=== PATIENT | female | born 2000 | race Caucasian/White ===

== ENCOUNTER 2022-07-08 08:00 | Outpatient (CLI) | payer OTHER ==
[2022-07-08 15:21] LABS: BILIRUBIN,URINE NEGATIVE (NEGATIVE); GLUCOSE, URINE (UA) NEGATIVE (NEGATIVE); KETONES,URINE (UA) NEGATIVE (NEGATIVE); LEUKOCYTE ESTERASE, URINE NEGATIVE (NEGATIVE); NITRITE,URINE NEGATIVE (NEGATIVE); OCCULT BLOOD,URINE NEGATIVE (NEGATIVE); PROTEIN,URINE NEGATIVE (NEGATIVE); UROBILINOGEN,URINE 0.2 (NORMAL) E.U./dL (NORMAL)
[2022-07-08 15:24] LABS: CLARITY,URINE CLEAR (CLEAR)
== END 2022-07-08 23:59 | disposition home or self-care (01) ==
LOC: LAB.WC 08:00
PROVIDERS: ATTEND Obstetrics & Gynecology
DX: Z32.01 Encounter for pregnancy test, result positive (principal)
CPT/HCPCS: 81001; 81003; 87086

== ENCOUNTER 2022-09-08 13:56 | Outpatient (CLI) | payer OTHER ==
[2022-09-10 13:09] LABS: AFP MOM 0.87 (.); AFP VALUE 35.3 ng/mL (.); DIA MOM 1.02 (.); DSR (BY AGE) 1 IN 1056 (.); DSR (SECOND TRIMESTER) 1 IN 1659 (.); GEST. AGE ON COLLECTION DATE 15.4 WEEKS (.); GESTAT. AGE METHOD EDD (.); HCG MOM 1.08 (.); HCG VALUE 72188 mIU/mL (.); INSULIN DEP DIABETES No (.); MATERNAL AGE AT EDD 24.4 yr (.); MULTIPLE GESTATION No (.); OPEN SPINA BIFIDA RISK 1 IN 10000 (.); RACE Caucasian (.); RESULTS Report (.); TEST RESULTS *Screen Negative* (.); TRISOMY 18 RISK Not increased (.); UE3 MOM 0.64 (.); UE3 VALUE 0.61 ng/mL (.); WEIGHT 108 lbs (.)
== END 2022-09-08 13:57 | disposition home or self-care (01) ==
LOC: LAB 13:56
PROVIDERS: ATTEND Obstetrics & Gynecology
DX: O34.211 Maternal care for low transverse scar from previous cesarean delivery (principal)
CPT/HCPCS: 36415; 81511

== ENCOUNTER 2022-10-26 14:30 | Outpatient (CLI) | payer OTHER ==
--- NOTE | 2022-10-26 17:03 | Ultrasound Report ---
PROCEDURE: OB Detailed Eval INDICATIONS: SUPERVISION OF OUTSIDE/PRIOR DATING DATA: Last menstrual period (LMP): 05/23/2022. LMP-based estimated date of delivery (MARIBETH): 02/27/2023. First dating scan (date and location): 07/31/2022. Estimated date of delivery (MARIBETH) from first dating scan: 03/02/2023. The below data below was generated using the ultrasound MARIBETH of 03/02/2023 TECHNIQUE: Real-time scanning was performed of the fetus, with image documentation and biometric measurements. COMPARISON: OB ultrasound 07/31/2022 FINDINGS: General: A single living intrauterine gestation is present. Presentation: There Placenta: Placental position is anterior, without previa. Amniotic fluid index: 16.1 cm, within normal limits for gestational age. Largest pocket measures 6 .2 cm heart rate: 152 beats per minute. Maternal cervical canal: 3.8 cm long; normal length is 2.5 cm or more. biometrics: Biparietal diameter: 5.0 cm 21 weeks 0 days Head circumference: 19.2 cm 21 weeks 3 days Abdominal circumference: 16.8 cm 21 weeks 6 days Femur length: 3.6 cm 21 weeks 3 days Estimated gestational age from initial scan: 21 weeks 6 days Composite gestational age from present scan: 21 weeks 4 days Estimated weight and percentile: 435 g 30th percentile Measurement variability in biometric dating: +/- 10 days from 12-20 weeks gestation, +/- 2 weeks from 20-30 weeks gestation, +/- 3 weeks at 30 weeks gestation or later. Anatomic survey: Neuro: Ventricles are normal at less than 10 mm. Cisterna magna is normal at 3-11 mm. Cerebellum i s normal in size and morphology. Nuchal skin fold: Normal at less than 6 mm between 14 and 20 weeks gestational age. Face: Nose and lips, facial profile are normal. Spine: No evidence for spina bifida. Heart: 4-chambered heart is present, with normal ventricular outflow tracts. Diaphragm: Diaphragm is intact. Stomach: Left-sided stomach is present. Kidneys: No hydronephrosis. Normal is less than 5 mm in 2nd trimester, less than 7 mm in 3rd trimester. Cord: 3 vessel cord has orthotopic insertion. Bladder: Normal in size. Extremities: All 4 extremities are visualized. IMPRESSION: Single intrauterine with ultrasound gestational age today of 21 weeks 4 days. Anatomy is within normal limits. Reviewed by: Josey Coleman MD on 10/26/2022 5:02 PM PST Approved by: Josey Coleman MD on 10/26/2022 5:02 PM [facility] Station ID: [id number]
== END 2022-10-26 14:31 | disposition home or self-care (01) ==
LOC: DI 14:30
PROVIDERS: ATTEND Obstetrics & Gynecology
DX: Z34.02 Encounter for supervision of normal first pregnancy, second trimester (principal)

== ENCOUNTER 2022-11-06 13:22 | Outpatient (CLI) | payer OTHER ==
[2022-11-06 14:33] LABS: HCT - HEMATOCRIT 30.6 % (37.0-47.0); HGB - HEMOGLOBIN 9.9 g/dL (12.0-16.0); MEAN CORPUSCULAR HEMOGLOBIN 28.7 pg (27.0-31.0); MEAN CORPUSCULAR HGB CONC 32.4 g/dL (32.0-36.0); MEAN CORPUSCULAR VOLUME 88.7 fL (81.0-99.0); MEAN PLATELET VOLUME 8.7 fL (7.9-10.8); RED BLOOD COUNT 3.45 10^6/uL (4.20-5.40); RED CELL DISTRIBUTION WIDTH 13.2 % (12.0-15.0)
== END 2022-11-06 13:23 | disposition home or self-care (01) ==
LOC: LAB 13:22
PROVIDERS: ATTEND Obstetrics & Gynecology
DX: O34.211 Maternal care for low transverse scar from previous cesarean delivery (principal)
CPT/HCPCS: 36415; 82950; 85027; 86850

== ENCOUNTER 2023-01-01 13:33 | Outpatient (CLI) | payer MEDICAID ==
[2023-01-01 13:44] LABS: HCT - HEMATOCRIT 29.4 % (37.0-47.0); HGB - HEMOGLOBIN 9.1 g/dL (12.0-16.0); MEAN CORPUSCULAR HEMOGLOBIN 27.6 pg (27.0-31.0); MEAN CORPUSCULAR VOLUME 89.1 fL (81.0-99.0); MEAN PLATELET VOLUME 9.2 fL (7.9-10.8); RED BLOOD COUNT 3.3 10^6/uL (4.20-5.40); RED CELL DISTRIBUTION WIDTH 12.1 % (12.0-15.0); WHITE BLOOD COUNT 10.3 x10^3/uL (4.8-10.8)
== END 2023-01-01 13:34 | disposition home or self-care (01) ==
LOC: LAB 13:33
PROVIDERS: ATTEND Obstetrics & Gynecology
DX: O99.013 Anemia complicating pregnancy, third trimester (principal)
CPT/HCPCS: 36415; 85027

== ENCOUNTER 2023-01-15 11:13 | Outpatient (CLI) | payer MEDICAID ==
[2023-01-15 11:50] VITALS: BP 114/73
[2023-01-15] MEDS ORDERED: FERRIC GLUCONATE 125 MG in SODIUM CHLORIDE 0.9% 100ML 100 ML IV ONE (11:50)
--- NOTE | 2023-01-15 17:26 | PROVIDER PROGRESS NOTE ---
- HPI Current : Current EDU 02/27/23 Gestation 33 Weeks and 6 Days 2 Para 1 Vital Signs Temperature 98.2 F 01/15/23 11:45 Heart Rate 91 01/15/23 11:45 Respiratory Rate 17 01/15/23 11:45 Blood Pressure 114/73 01/15/23 11:45 O2 Saturation 100 01/15/23 11:45 Temperature 98.2 F 01/15/23 11:45 Heart Rate 91 01/15/23 11:45 Respiratory Rate 17 01/15/23 11:45 Blood Pressure 114/73 01/15/23 11:45 O2 Saturation 100 01/15/23 11:45 If not protocol: Oxygen Flow, liters/minute - Procedures NST Procedure: NST Procedure Patient States Movement Yes - Plan Plan: 22yo at 33.6w with iron deficiency anemia in , third trimester - Ferrlicit infusion today - Repeat in 2w - To OB visit in [facility] following infusion
== END 2023-01-15 13:10 | disposition home or self-care (01) ==
LOC: WFO 11:13 → FBP 11:20 → WFO 13:10
PROVIDERS: ATTEND Obstetrics & Gynecology
DX: O99.013 Anemia complicating pregnancy, third trimester (principal); D50.9 Iron deficiency anemia, unspecified; Z3A.33 33 weeks gestation of pregnancy
CPT/HCPCS: 96365; J2916

== ENCOUNTER 2023-01-29 11:03 | Outpatient (CLI) | payer MEDICAID ==
[2023-01-29 11:32] LABS: BASOPHILS % (AUTO) 0.2 %; EOSINOPHILS % (AUTO) 0.5 %; HCT - HEMATOCRIT 30.7 % (37.0-47.0); HGB - HEMOGLOBIN 9.7 g/dL (12.0-16.0); LYMPHOCYTES # (AUTO) 1.6 10^3/uL (1.5-3.5); LYMPHOCYTES % (AUTO) 18.2 %; MEAN CORPUSCULAR HEMOGLOBIN 27.2 pg (27.0-31.0); MEAN CORPUSCULAR HGB CONC 31.6 g/dL (32.0-36.0); MEAN CORPUSCULAR VOLUME 86.2 fL (81.0-99.0); MONOCYTES # (AUTO) 0.5 10^3/uL (0.0-1.0); MONOCYTES % (AUTO) 5.9 %; NEUTROPHILS # (AUTO) 6.4 10^3/uL (1.5-6.6); NEUTROPHILS % (AUTO) 74.2 %; PLT - PLATELET COUNT 281 10^3/uL (130-450); RED BLOOD COUNT 3.56 10^6/uL (4.20-5.40); RED CELL DISTRIBUTION WIDTH 13.2 % (12.0-15.0); WHITE BLOOD COUNT 8.6 x10^3/uL (4.8-10.8)
[2023-01-29] MEDS ORDERED: FERRIC GLUCONATE 125 MG in SODIUM CHLORIDE 0.9% 100ML 100 ML IV ONE (12:00)
[2023-01-29 13:06] VITALS: BP 119/56
--- NOTE | 2023-01-29 19:19 | PROVIDER PROGRESS NOTE ---
- HPI Current : Current EDU 02/27/23 Gestation 35 Weeks and 6 Days 4 Para 1 Vital Signs Temperature 98.8 F 01/29/23 11:20 Heart Rate 97 01/29/23 11:20 Respiratory Rate 17 01/29/23 11:20 Blood Pressure 105/62 01/29/23 11:20 Temperature 98.8 F 01/29/23 11:20 Heart Rate 86 01/29/23 13:05 Respiratory Rate 15 01/29/23 13:05 Blood Pressure 119/56 L 01/29/23 13:05 O2 Saturation 100 01/29/23 11:44 If not protocol: Oxygen Flow, liters/minute - Procedures NST Procedure: NST Procedure Patient States Movement Yes - Plan Plan: 22yo at 35.6w presented to [facility] for scheduled Ferrlicit iron infusion for anemia in , third trimester. CBC ordered. Improved from 9.1 to 9.7 Hgb. Follow up in office visit today. Tolerated infusion well.
== END 2023-01-29 13:15 | disposition home or self-care (01) ==
LOC: WFO 11:03 → FBP 11:05 → WFO 13:15
PROVIDERS: ATTEND Obstetrics & Gynecology
DX: O99.013 Anemia complicating pregnancy, third trimester (principal); Z3A.35 35 weeks gestation of pregnancy
CPT/HCPCS: 85025; 96365; J2916

== ENCOUNTER 2023-02-05 09:00 | Outpatient (CLI) | payer MEDICAID | END 2023-02-05 23:59 | disposition home or self-care (01) | LOC: LAB 09:00 | PROVIDERS: ATTEND Obstetrics & Gynecology | DX: Z36.85 Encounter for antenatal screening for Streptococcus B (principal) | CPT/HCPCS: 87797 ==

== ENCOUNTER 2023-02-05 13:53 | Outpatient (CLI) | payer MEDICAID ==
[2023-02-05] MEDS ORDERED: FERRIC GLUCONATE 125 MG in SODIUM CHLORIDE 0.9% 100ML 100 ML IV ONE (13:59)
[2023-02-05 15:02] LABS: BASOPHILS % (AUTO) 0.3 %; EOSINOPHILS % (AUTO) 0.3 %; HCT - HEMATOCRIT 31.2 % (37.0-47.0); HGB - HEMOGLOBIN 9.6 g/dL (12.0-16.0); LYMPHOCYTES # (AUTO) 1.9 10^3/uL (1.5-3.5); LYMPHOCYTES % (AUTO) 16.6 %; MEAN CORPUSCULAR HEMOGLOBIN 26.9 pg (27.0-31.0); MEAN CORPUSCULAR HGB CONC 30.8 g/dL (32.0-36.0); MEAN CORPUSCULAR VOLUME 87.4 fL (81.0-99.0); MEAN PLATELET VOLUME 9.9 fL (7.9-10.8); MONOCYTES # (AUTO) 0.9 10^3/uL (0.0-1.0); MONOCYTES % (AUTO) 7.9 %; NEUTROPHILS # (AUTO) 8.2 10^3/uL (1.5-6.6); NEUTROPHILS % (AUTO) 73.5 %; PLT - PLATELET COUNT 267 10^3/uL (130-450); RED BLOOD COUNT 3.57 10^6/uL (4.20-5.40); RED CELL DISTRIBUTION WIDTH 14.6 % (12.0-15.0); WHITE BLOOD COUNT 11.2 x10^3/uL (4.8-10.8)
--- NOTE | 2023-02-05 16:04 | PROVIDER PROGRESS NOTE ---
Subjective - Prog Note Date Prog Note Date: 02/05/23 Prog Note Time: 02:00 Objective - Vital Signs/Intake & Output Vital Signs: Vital Signs x48h Temp Pulse Resp BP Pulse Ox 02/05/23 14:08 98.2 F 94 16 114/81 H 100 - Lab Results Fish Bones: 02/05/23 14:59 Other Labs: Lab Results x24hrs 02/05/23 Range/Units 14:59 WBC 11.2 H (4.8-10.8) x10^3/uL RBC 3.57 L (4.20-5.40) 10^6/uL Hgb 9.6 L (12.0-16.0) g/dL Hct 31.2 L (37.0-47.0) % MCV 87.4 (81.0-99.0) fL MCH 26.9 L (27.0-31.0) pg MCHC 30.8 L (32.0-36.0) g/dL RDW 14.6 (12.0-15.0) % Plt Count 267 (130-450) 10^3/uL MPV 9.9 (7.9-10.8) fL Neut # (Auto) 8.2 H (1.5-6.6) 10^3/uL Lymph # (Auto) 1.9 (1.5-3.5) 10^3/uL [place] # (Auto) 0.9 (0.0-1.0) 10^3/uL Eos # (Auto) 0.0 (0.0-0.7) 10^3/uL Baso # (Auto) 0.0 (0.0-0.1) 10^3/uL Absolute Nucleated RBC 0.00 x10^3/uL Nucleated RBC % 0.0 /100WBC Assessment/Plan - Problem List (1) Anemia affecting in third trimester Impression: 22yo at 36.6w presented for scheduled iron infusion for anemia in . CBC obtained and still anemic 9.6 Hgb Infusion #3 given today
[2023-02-05 16:11] VITALS: BP 123/70
== END 2023-02-05 16:22 | disposition home or self-care (01) ==
LOC: WFO 13:53 → FBP 13:56 → WFO 16:22
PROVIDERS: ATTEND Obstetrics & Gynecology
DX: O99.013 Anemia complicating pregnancy, third trimester (principal); Z3A.36 36 weeks gestation of pregnancy
CPT/HCPCS: 85025; 96365; J2916

== ENCOUNTER 2023-02-12 14:14 | Outpatient (CLI) | payer MEDICAID ==
[2023-02-12 14:49] LABS: BASOPHILS % (AUTO) 0.3 %; EOSINOPHILS % (AUTO) 0.3 %; HCT - HEMATOCRIT 33.1 % (37.0-47.0); HGB - HEMOGLOBIN 10.2 g/dL (12.0-16.0); LYMPHOCYTES # (AUTO) 1.5 10^3/uL (1.5-3.5); LYMPHOCYTES % (AUTO) 14.2 %; MEAN CORPUSCULAR HGB CONC 30.8 g/dL (32.0-36.0); MEAN CORPUSCULAR VOLUME 87.6 fL (81.0-99.0); MEAN PLATELET VOLUME 9.9 fL (7.9-10.8); MONOCYTES # (AUTO) 0.8 10^3/uL (0.0-1.0); MONOCYTES % (AUTO) 7.3 %; NEUTROPHILS # (AUTO) 7.8 10^3/uL (1.5-6.6); NEUTROPHILS % (AUTO) 76.1 %; PLT - PLATELET COUNT 232 10^3/uL (130-450); RED BLOOD COUNT 3.78 10^6/uL (4.20-5.40); WHITE BLOOD COUNT 10.3 x10^3/uL (4.8-10.8)
[2023-02-12] MEDS: FERRIC GLUCONATE 125 MG in SODIUM CHLORIDE 0.9% 100ML 100 ML IV ONE (14:54)
[2023-02-12 16:09] VITALS: BP 125/58
--- NOTE | 2023-02-12 18:34 | PROCEDURE REPORT ---
- HPI Diagnosis/Indication for NST: Decreased movement Current EDU 02/27/23 Gestation 37 Weeks and 6 Days 2 Para 1 Vital Signs Temperature 98.1 F 02/12/23 14:30 Heart Rate 95 02/12/23 14:30 Respiratory Rate 17 02/12/23 14:30 Blood Pressure 114/65 02/12/23 14:30 O2 Saturation 100 02/12/23 14:30 Temperature 98.2 F 02/12/23 16:08 Heart Rate 88 02/12/23 16:08 Respiratory Rate 16 02/12/23 16:08 Blood Pressure 125/58 L 02/12/23 16:08 O2 Saturation 100 02/12/23 16:08 If not protocol: Oxygen Flow, liters/minute - NST Procedure NST Procedure Start Date 02/12/23 Start Time 14:20 Stop Time 15:03 Vibroacoustic Stimulation Used No Patient States Movement Yes baseline 125 moderate variability +accels, no decels reactive NST - Results and Plan Plan: Reactive NST
== END 2023-02-12 16:11 | disposition home or self-care (01) ==
LOC: WFO 14:14 → FBP 14:16 → WFO 16:11
PROVIDERS: ATTEND Obstetrics & Gynecology
DX: O36.8130 Decreased fetal movements, third trimester, not applicable or unspecified (principal); O99.013 Anemia complicating pregnancy, third trimester; Z3A.37 37 weeks gestation of pregnancy
CPT/HCPCS: 59025; 85025; 96365; J2916

== ENCOUNTER 2023-02-23 07:02 | Inpatient (IN) | payer MEDICAID ==
[~2023-02-23 07:02] MED LIST: LACTATED RINGERS 1,000 ML IV SCH; ceFAZolin 2 GM in SODIUM CHLORIDE 0.9% MINIBAG 100 ML IV ONE
[2023-02-23] MEDS ORDERED: ceFAZolin 2 GM in SODIUM CHLORIDE 0.9% MINIBAG 100 ML IV ONE (07:50)
[2023-02-23] MEDS ORDERED: CITRIC ACID/SODIUM CITRATE 15 ML UDC PO ONE (07:51)
--- NOTE | 2023-02-23 07:56 | ANESTHESIA ---
Pre-Anesthesia VS, & Labs Height: 5 ft - NPO >8 hours - Is Patient ?: Yes - Lab Results Lab results reviewed: Yes <Edin Rizo - Last Filed: 02/23/23 07:55> - Lab Results Fish Bones: 02/23/23 07:50 <Leslie Posey - Last Filed: 02/23/23 09:06> - Diagnosis previous c/s (Edin Rizo) - Procedure repeat c/s (Edin Rizo) Vital Signs: Temp Pulse Resp BP Pulse Ox O2 Flow Rate 36.8 C 92 16 110/67 02/23/23 07:28 02/23/23 07:28 02/23/23 07:28 02/23/23 07:28 - Lab Results Current Lab Results: Laboratory Tests 02/23/23 07:50: WBC 9.4, RBC 3.78 L, Hgb 10.4 L, Hct 32.5 L, MCV 86.0, MCH 27.5, MCHC 32.0, RDW 16.6 H, Plt Count 228, MPV 10.1, Neut # (Auto) 6.9 H, Lymph # (Auto) 1.7, [place] # (Auto) 0.6, Eos # (Auto) 0.0, Baso # (Auto) 0.0, Absolute Nucleated RBC 0.00, Nucleated RBC % 0.0 02/23/23 07:50: Blood Type A POSITIVE, Antibody Screen NEGATIVE Home Medications and Allergies <Edin Rizo P - Last Filed: 02/23/23 07:55> <Leslie Posey E - Last Filed: 02/23/23 09:06> Active Medications Lactated Ringer's (Lr) 1,000 mls @ 0 mls/hr IV .Q0M CAROLYNE Allergies/Adverse Reactions: Allergies Allergy/AdvReac Type Severity Reaction Status Date / Time codeine Allergy Rash Verified 01/29/23 11:26 Anes History & Medical History - Anesthetic History Anesthesia Complications: reports: No previous complications - Medical History Cardiovascular: reports: None Pulmonary: reports: None Urinary: reports: None Neuro: reports: None Musculoskeletal: reports: None History of Cancer?: No - Surgical History Gynecologic: reports: section <Leslie Posey - Last Filed: 02/23/23 09:06> Exam General: Alert, Oriented x3, Cooperative <Edin Rizo P - Last Filed: 02/23/23 07:55> Dental: WNL Mouth Openin Fingerbreadth Neck Mobility: Normal Mallampati classification: II Thyromental Distance: 4-6 cm (small mouth, set back chin) Respiratory: Lungs clear Cardiovascular: Regular rate <Leslie Posey E - Last Filed: 02/23/23 09:06> Plan Anesthesia Type: Spinal Consent for Procedure(s) Verified and Reviewed: Yes Code Status: Attempt Resuscitation ASA classification: 2-Mild systemic disease Is this case an emergency?: No <Edin Rizo P - Last Filed: 02/23/23 07:55>
[2023-02-23 08:16] LABS: BASOPHILS % (AUTO) 0.2 %; EOSINOPHILS % (AUTO) 0.4 %; HCT - HEMATOCRIT 32.5 % (37.0-47.0); HGB - HEMOGLOBIN 10.4 g/dL (12.0-16.0); LYMPHOCYTES # (AUTO) 1.7 10^3/uL (1.5-3.5); LYMPHOCYTES % (AUTO) 18.4 %; MEAN CORPUSCULAR HEMOGLOBIN 27.5 pg (27.0-31.0); MEAN PLATELET VOLUME 10.1 fL (7.9-10.8); MONOCYTES # (AUTO) 0.6 10^3/uL (0.0-1.0); MONOCYTES % (AUTO) 6.7 %; NEUTROPHILS # (AUTO) 6.9 10^3/uL (1.5-6.6); NEUTROPHILS % (AUTO) 73.1 %; PLT - PLATELET COUNT 228 10^3/uL (130-450); RED BLOOD COUNT 3.78 10^6/uL (4.20-5.40); RED CELL DISTRIBUTION WIDTH 16.6 % (12.0-15.0); WHITE BLOOD COUNT 9.4 x10^3/uL (4.8-10.8)
[2023-02-23] MEDS ORDERED: ONDANSETRON 4 MG/2 ML VIAL IVP PRN ×2 (09:06→09:54)
[2023-02-23] MEDS ORDERED: NALOXONE 0.4 MG/ML VIAL IVP PRN ×3 (09:06→10:41)
[2023-02-23] MEDS ORDERED: MORPHINE PF 5 MG/10 ML VIAL ONE (09:06)
[2023-02-23] MEDS ORDERED: fentaNYL 100 MCG/2 ML VIAL ONE (09:06)
[2023-02-23] MEDS ORDERED: METOCLOPRAMIDE 10 MG/2 ML VIAL IVP PRN ×2 (09:06→09:54)
[2023-02-23] MEDS ORDERED: ePHEDrine 50 MG/ML VIAL IVP PRN ×2 (09:06→09:54)
[2023-02-23] MEDS ORDERED: MORPHINE 2 MG/ML CARPUJECT IVP PRN (09:06)
[2023-02-23] MEDS ORDERED: fentaNYL 100 MCG/2 ML VIAL IVP PRN (09:06)
[2023-02-23] MEDS ORDERED: HYDROmorphone 0.5 MG/0.5 ML SYRINGE IVP PRN (09:06)
[2023-02-23] MEDS ORDERED: ATROPINE ABBOJECT 1 MG/10 ML SYRINGE IVP PRN (09:06)
[2023-02-23] MEDS ORDERED: OXYTOCIN 10 UNIT/ML VIAL ONE (09:07)
--- NOTE | 2023-02-23 09:22 | HISTORY & PHYSICAL EXAMINATION ---
Admit History - Visit Reason Visit Reason: Other (Scheduled RCD at 39.3w) - : 4 Parity: 1 : 2 Care: positive: [facility] Risk/History: positive: Previous Smoking Status: Current every day smoker (Vaping) - Mother's Labs Mother's Blood Type: positive: A Mother's RH: positive: Positive GBS: positive: Group B Step Negative Rubella Status: positive: Non-immune - Other Maternal History Other Maternal History: Med: anxiety, depression Surg: CD x1 Fam: noncontributory Social: lives at home with father of baby (not in a current relationship) and h er son (from prior partner), homemaker Meds/Allgy - Allergies Allergies/Adverse Reactions: Allergies Allergy/AdvReac Type Severity Reaction Status Date / Time codeine Allergy Rash Verified 01/29/23 11:26 Review of Systems - Constitutional Constitutional: reports: Fatigue - Musculoskeletal Musculoskeletal: reports: Back pain - Hematologic/Lymphatic Hematologic/Lymphatic: reports: Anemia Physical - Abdominal Exam Vital Signs: Temp Pulse Resp BP Pulse Ox O2 Flow Rate 98.2 F 92 16 110/67 02/23/23 07:28 02/23/23 07:28 02/23/23 07:28 02/23/23 07:28 Contraction Frequency (min/apart): occasional Contraction Intensity: positive: Mild Uterine Resting Tone: positive: Soft - Monitoring Heart Rate Baseline: 140 Strip Review: positive: Category I - Presentation Presentation: positive: Vertex - Vaginal Exam Membranes: positive: Membranes intact Plan for Labor - Plan For Labor I expect patient to be DC'd or transferred within 96 hours.: Yes Plan for Labor: 22yo at 39.3w admitted to [facility] for scheduled RCD - Admit - CBC, TS complicated by prior CD x1, anemia treated with Ferrlicit x4, vaping in , history anxiety/depression, rubella NON immune, varicella NON immune.
[2023-02-23] MEDS ORDERED: fentaNYL 100 MCG/2 ML VIAL IT ONE (09:30)
[2023-02-23] MEDS ORDERED: MORPHINE PF 5 MG/10 ML VIAL IT ONE (09:30)
[2023-02-23] MEDS ORDERED: ONDANSETRON 4 MG/2 ML VIAL ONE (09:38)
[2023-02-23] MEDS ORDERED: ACETAMINOPHEN 1,000 MG/100 ML 1,000 MG/100 ML BAG IV ONE (09:39)
[2023-02-23] MEDS ORDERED: diphenhydrAMINE INJ 50 MG/ML VIAL IVP PRN (09:54)
[2023-02-23] MEDS ORDERED: LACTATED RINGERS 1,000 ML IV SCH (10:00)
[2023-02-23] MEDS ORDERED: KETOROLAC 30 MG/ML VIAL ONE (10:16)
[2023-02-23] MEDS ORDERED: CALCIUM CARBONATE CHEW 500 MG TABLET PO PRN (10:41)
[2023-02-23] MEDS ORDERED: MEASLES,MUMPS & RUBELLA VACC 0.5 ML VIAL SUBQ ONE (10:41)
[2023-02-23] MEDS ORDERED: oxyCODONE 5 MG TABLET PO PRN (10:41)
[2023-02-23] MEDS ORDERED: SIMETHICONE CHEW 80 MG TABLET PO PRN (10:41)
[2023-02-23] MEDS ORDERED: WITCH HAZEL/GLYCERIN 1 PAD TOP PRN (10:41)
[2023-02-23] MEDS ORDERED: OXYTOCIN/SODIUM CHLORIDE 500 ML IV PRN (10:41)
[2023-02-23] MEDS ORDERED: HYDROCORTISONE 1% CREAM 28 GM TUBE TOP PRN (10:41)
--- NOTE | 2023-02-23 10:48 | DELIVERY NOTE ---
Delivery Note - Labor Labor: positive: Other (Scheduled RCD at 39.3w) - Delivery Method Infant Delivery Method: positive: Repeat - Presentation Presentation: positive: Vertex, FERNANDO - left occiput anterior - Nuchal Cord Nuchal Cord: positive: None - Anesthetic Anesthetic Type: - Amniotic Fluid Description Amniotic Fluid Description: positive: Clear - Episiotomy Type Episiotomy Type: positive: None - Laceration Laceration: positive: None - Delivery Outcome Delivery Outcome: positive: Livebirth - [place]: positive: Suctioned, Stimulated, Warmed, Warmer used sex: positive: Male - Cord Cord: positive: 3 vessels - Placenta Placenta: positive: Expressed - Estimated Blood Loss Estimated Blood Loss (in cc): 600 - Delivery Comments (Free Text/Narrative) Delivery Comments (Free Text/Narrative): See operative report, uncomplicated scheduled RCD.
--- NOTE | 2023-02-23 10:51 | OPERATIVE REPORT ---
Operative Report - General Admit Date: 02/23/23 Planned Procedure: Repeat section Pre-Op Diagnosis: 22yo with IUP 39.3w, desires repeat CD Procedure Performed: Repeat section Post Op Diagnosis: 22yo with IUP 39.3w, desires repeat CD - Procedure Note Primary Surgeon: Fatimah Meade DO Secondary Surgeon: Yecenia Griffin NP; assistance requested for retraction, safe completion Anesthesia Provider: Edin Rizo CRNA Anesthesia Technique: Spinal Pathology: None Placenta and scar discarded Estimated Blood Loss (mL): 600 Urine Output (mL): 50 Indications: 22yo with IUP 39.3w, desires repeat CD Findings: Normal appearing uterus, tubes, ovaries Viable male Complications: None - Other Other Information/Narrative: Under spinal anaesthetic with a elizondo catheter inserted, the patient was prepped and draped in the usual sterile fashion in the supine position with a leftward tilt. Prior scar from PCD was removed. Pfannensteil incision was continued. The incision was carried down to the fascia with cautery. The fascia was incised transversely and dissected off the rectus muscle using blunt and sharp dissection. Electrocautery was used for hemostasis. The peritoneum was opened taking care not to injure the bladder. The vesicouterine peritoneum was dissected off the lower uterine segment. The lower segment was assessed and a low transverse incision was made. The uterine incision was extended bluntly. The fetus was presenting as a vertex. The head was delivered without difficulty and the rest of the body followed easily. After one minute of delayed cord clamping, the cord was clamped twice and cut and the baby transferred to the warmer, awaiting the pediatric staff. Cord blood then obtained. The placenta was then delivered with assistance. The uterus was explored and was empty of all tissue. The uterus was exteriorized for better vi sualization. The uterine incision was then closed in two layers with 0-Monocryl. The first layer was locking and the second was imbricating. Two figure of eight sutures were required for good hemostasis at left apex. Tubes and ovaries were examined and appeared normal. The fascia was closed with 0-Vicryl in a running unlocked fashion. Subcutaneous layer reapproximated with 2-0 chromic. The skin was then reapproximated with 3-0 Monocryl. At the end of the procedure all sponges, instruments, and sharps were counted and correct. Estimated blood loss was 600cc. The patient and were taken to the recovery in stable condition.
[2023-02-23] MEDS ORDERED: LACTATED RINGERS 1,000 ML IV ONE (11:18)
[2023-02-23] MEDS ORDERED: VARICELLA VACCINE LIVE/PF 1,350 UNIT/0.5 ML VIAL SUBQ ONE (11:30)
--- NOTE | 2023-02-23 13:16 | ANESTHESIA POST OP EVALUATION ---
Anesthesia Post Eval - Post Anesthesia Eval Vitals: Last Vital Signs Temp 36.5 C 02/23/23 12:26 Pulse 72 02/23/23 12:26 Resp 16 02/23/23 12:26 BP 121/62 02/23/23 12:26 Pulse Ox 99 02/23/23 12:26 O2 Flow Rate CV Function Including HR & BP: Stable Pain Control: Satisfactory Nausea & Vomiting: Negative Mental Status: Baseline Respiratory Status: Airway Patent Hydration Status: Satisfactory Anesthesia Complications: None
[2023-02-23] MEDS: ACETAMINOPHEN 500 MG TABLET PO SCH (17:26)
[2023-02-23] MEDS: NALBUPHINE 10 MG/ML AMP IVP PRN (17:27)
[2023-02-23] MEDS: KETOROLAC 30 MG/ML VIAL IVP SCH (17:27)
[2023-02-23] MEDS: SERTRALINE 50 MG TABLET PO SCH (19:04)
[2023-02-23] MEDS: DOCUSATE SODIUM 100 MG CAPSULE PO SCH (20:52)
[2023-02-23] MEDS: SODIUM CHLORIDE FLUSH 0.9% 10 ML SYRINGE IVP PRN (21:16)
[2023-02-24] MEDS: KETOROLAC 30 MG/ML VIAL IVP SCH ×2 (00:32→13:30)
[2023-02-24] MEDS: SODIUM CHLORIDE FLUSH 0.9% 10 ML SYRINGE IVP PRN ×2 (00:33→05:20)
[2023-02-24] MEDS: ACETAMINOPHEN 500 MG TABLET PO SCH ×3 (01:26→19:13)
[2023-02-24] MEDS: NALBUPHINE 10 MG/ML AMP IVP PRN (05:20)
[2023-02-24 05:38] LABS: HGB - HEMOGLOBIN 10.3 g/dL (12.0-16.0); MEAN CORPUSCULAR HEMOGLOBIN 27.4 pg (27.0-31.0); MEAN CORPUSCULAR HGB CONC 31.2 g/dL (32.0-36.0); MEAN CORPUSCULAR VOLUME 87.8 fL (81.0-99.0); MEAN PLATELET VOLUME 9.2 fL (7.9-10.8); RED BLOOD COUNT 3.76 10^6/uL (4.20-5.40); RED CELL DISTRIBUTION WIDTH 16.6 % (12.0-15.0)
[2023-02-24] MEDS ORDERED: KETOROLAC 30 MG/ML VIAL IVP SCH (07:00)
--- NOTE | 2023-02-24 08:14 | PROVIDER PROGRESS NOTE ---
Subjective - Prog Note Date Prog Note Date: 02/24/23 Prog Note Time: 08:00 - Subjective Pt reports feeling: Improved Subjective: Comfortable, taking only ibuprofen and acetaminophen. Appropriate lochia. Ambulating. Voiding. Tolerating regular diet. , some soreness. Mood was low yesterday and Zoloft was started. Feeling better today after sleeping. Objective - Vital Signs/Intake & Output Reviewed Vital Signs: Yes Vital Signs: Vital Signs x48h Temp Pulse Resp BP Pulse Ox 02/24/23 03:27 98.1 F 74 18 126/71 98 Intake & Output: Intake & Output 02/21/23 02/22/23 02/23/23 02/24/23 23:59 23:59 23:59 23:59 Output Total 700 200 Balance -700 -200 - Objective General Appearance: positive: No acute distress Eyes Bilateral: positive: EOMI Respiratory: positive: No respiratory distress Abdomen: positive: Other (Dressing c/d/i, small area marked with bleeding) Skin: positive: Color nml Extremities: positive: Non-tender Neurologic/Psychiatric: positive: Oriented x3 - Lab Results Fish Bones: 02/24/23 05:32 Other Labs: Lab Results x24hrs 02/24/23 02/23/23 02/23/23 Range/Units 05:32 07:50 07:50 WBC 12.0 H 9.4 (4.8-10.8) x10^3/uL RBC 3.76 L 3.78 L (4.20-5.40) 10^6/uL Hgb 10.3 L 10.4 L (12.0-16.0) g/dL Hct 33.0 L 32.5 L (37.0-47.0) % MCV 87.8 86.0 (81.0-99.0) fL MCH 27.4 27.5 (27.0-31.0) pg MCHC 31.2 L 32.0 (32.0-36.0) g/dL RDW 16.6 H 16.6 H (12.0-15.0) % Plt Count 217 228 (130-450) 10^3/uL MPV 9.2 10.1 (7.9-10.8) fL Neut # (Auto) 6.9 H (1.5-6.6) 10^3/uL Lymph # (Auto) 1.7 (1.5-3.5) 10^3/uL [place] # (Auto) 0.6 (0.0-1.0) 10^3/uL Eos # (Auto) 0.0 (0.0-0.7) 10^3/uL Baso # (Auto) 0.0 (0.0-0.1) 10^3/uL Absolute Nucleated RBC 0.00 x10^3/uL Nucleated RBC % 0.0 /100WBC Blood Type A POSITIVE Antibody Screen NEGATIVE Assessment/Plan - Problem List (1) care following delivery Impression: 22yo s/p scheduled RCD at 39.3w, POD#1 - Recovering well - Anticipate discharge home tomorrow - Zoloft and oxycodone prescribed - Follow up 03/01/23 1300 at (2) Acute postoperative anemia due to expected blood loss Impression: Ferrlicit today, then may remove IV. She has had 4 infusions antepartum for anemia. (3) depression associated with second Impression: Last on anti-depressant in high school. Mood low yesterday. We started on Zoloft yesterday and will continue. (4) Single live Impression: Baby boy Gareth well and rooming with mother. (5) Maternal varicella, non-immune Impression: Vaccinate prior to discharge. (6) Rubella non-immune status, delivered, current hospitalization Impression: Vaccinate prior to discharge.
[2023-02-24] MEDS: DOCUSATE SODIUM 100 MG CAPSULE PO SCH ×3 (08:54→21:17)
[2023-02-24] MEDS ORDERED: FERRIC GLUCONATE 125 MG in SODIUM CHLORIDE 0.9% 100ML 100 ML IV SCH (09:00)
[2023-02-24] MEDS: IBUPROFEN 800 MG TABLET PO PRN ×2 (13:18→19:39)
[2023-02-24] MEDS: SERTRALINE 50 MG TABLET PO SCH (19:12)
[2023-02-25] MEDS: IBUPROFEN 800 MG TABLET PO PRN ×2 (01:24→09:21)
[2023-02-25] MEDS: ACETAMINOPHEN 500 MG TABLET PO SCH ×2 (03:32→11:26)
[2023-02-25 09:19] VITALS: BP 131/72
[2023-02-25] MEDS: DOCUSATE SODIUM 100 MG CAPSULE PO SCH (09:21)
--- NOTE | 2023-02-25 12:26 | Discharge Plan ---
Discharge Plan Problem Reviewed?: Yes Disposition: Home, Self Care Condition: Good Diet: Regular Activity Restrictions: Additional Comments Instruction Topics: C Section Dc No Smoking: If you smoke, Please STOP! Call for help. Follow-up with: Yecenia Griffin ARNP [Provider Admit Priv/Credential] -
--- NOTE | 2023-02-25 12:27 | DISCHARGE SUMMARY ---
Discharge Summary Admit Date: 02/23/23 Discharge Date: 02/25/23 Discharging Provider: Silvestre Ly MD Code Status: Attempt Resuscitation Condition at Discharge: Good Discharge Disposition: 01 Home, Self Care - DIAGNOSES Admission Diagnoses: 39 weeks gestation Previous low-transverse section Discharge Diagnoses with Status of Each Condition: 39 weeks gestation: Delivered Previous low-transverse section: Delivered Delivery of live mart - HPI History of Present Illness: Subjective Patient reports she is doing well. Lochia appropriate. Denies heavy bleeding. Ambulating. Pelvic and abdominal pain well-controlled. Tolerating oral intake. Diet: Regular. Voiding without difficulty. Passing flatus. Denies BM. Patient is bonding with baby in room Breast feeding going well. Denies feeling lightheaded, dizzy or excessively fatigued. Mood is good today. She is happy she started antidepressant. Objective General: Alert, oriented, no apparent distress. Cardiovascular: Regular rate. Regular rhythm. Lungs: No increased work of breathing. Abdomen: Uterus firm. Below umbilicus. No guarding or rebound. Extremities: No pain on palpation. No cords palpated. Distal pulses intact. Incision: Clean, dry, and intact. - HOSPITAL COURSE Hospital Course: Pat39 weeks gestation: Delivered Previous low-transverse section: Delivered Delivery of live mart newbornient is admitted for planned repeat section. was unremarkable. course was complicated by high risk social situation and mood abnormalities. She was started on sertraline. She met with high school social studies teacher for additional help. She and baby are feeling well on day 2 and is discharged in good condition with follow-up in 4 days. - ALLERGIES Allergies/Adverse Reactions: Allergies Allergy/AdvReac Type Severity Reaction Status Date / Time codeine Allergy Rash Verified 01/29/23 11:26 - MEDICATIONS Home Medications: Ambulatory Orders Medication Instructions Recorded Confirmed Acetaminophen [Acetaminophen Extra 1,000 mg PO Q8H PRN #60 tablet 02/25/23 Strength] Docusate Sodium 100Mg Capsule 100 - 200 mg PO BID PRN #60 cap 02/25/23 [Colace 100Mg Capsule] Ibuprofen [Motrin] 600 mg PO Q6H PRN #30 tab 02/25/23 - LABS Result Diagrams: 02/24/23 05:32 - FOLLOW UP Follow Up: With ALINA Roque next week - TIME SPENT Time Spent in Discharge (Minutes): 20
== END 2023-02-25 14:30 | disposition home or self-care (01) | DRG 788 ==
LOC: FBP 07:02
PROVIDERS: ADMIT Obstetrics & Gynecology; ATTEND Obstetrics & Gynecology
PROC: 10D00Z1 Extraction of Products of Conception, Low, Open Approach (ICD-10-PCS; principal; 2023-02-23 09:45)
DX: O34.211 Maternal care for low transverse scar from previous cesarean delivery (principal); N85.8 Other specified noninflammatory disorders of uterus; Z3A.39 39 weeks gestation of pregnancy; Z37.0 Single live birth; O99.334 Smoking (tobacco) complicating childbirth; F17.290 Nicotine dependence, other tobacco product, uncomplicated; O99.344 Other mental disorders complicating childbirth; F41.9 Anxiety disorder, unspecified; F32.A Depression, unspecified; O99.02 Anemia complicating childbirth; O99.345 Other mental disorders complicating the puerperium; F53.0 Postpartum depression
CPT/HCPCS: 36415; 85025; 85027; 86850; 86900; 86901; 90716; A9270; J0131; J2300; J2916; J7120

== ENCOUNTER 2023-09-28 12:13 | Emergency (ER) | payer MEDICAID ==
[2023-09-28 12:42] VITALS: BP 112/70; O2SAT 97
--- NOTE | 2023-09-28 13:50 | ED Physician Documentation ---
History of Present Illness - Stated complaint Stated Complaint: SORE,BODYACHES - Chief complaint Chief Complaint: General - History obtained from History obtained from: Patient - Additonal information Additional information: Patient is a 23-year-old female presenting for evaluation of feeling like she has mastitis. Patient reports developing symptoms in the right breast 2 days ago and now feeling similar symptoms in the left breast with achiness and pain. Also reports feeling body aches. Has continued to nurse despite discomfort. Her baby is 7 months old. 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 - Present Medications Home Medications: Ambulatory Orders Medication Instructions Recorded Confirmed Sertraline HCl 100 mg PO DAILY 09/28/23 09/28/23 cephALEXin [Keflex] 500 mg PO Q6H #40 cap 09/28/23 - Allergies Allergies/Adverse Reactions: Allergies Allergy/AdvReac Type Severity Reaction Status Date / Time codeine Allergy Rash Verified 09/28/23 12:34 - Social History Does the pt smoke?: No Smoking Status: Never smoker Does the pt drink ETOH?: No Does the pt have substance abuse?: No - Immunizations Immunizations are current?: Yes PD ED PE NORMAL - General General: Alert and oriented X 3, No acute distress, Well developed/nourished - HEENT HEENT: Atraumatic - Neck Neck: Supple, no meningeal sign - Cardiac Cardiac: RRR - Respiratory Respiratory: No respiratory distress, Clear bilaterally - Derm Derm: Other (Mild erythema present to lower right breast, no abscess or fluctuance to bilateral breasts) Results - Vitals Vitals: Vital Signs - 24 hr 09/28/23 12:34 Temperature 36.8 C Heart Rate 85 Respiratory 16 Rate Blood Pressure 112/70 O2 Saturation 97 Oxygen O2 Source Room air PD Medical Decision Making - ED course ED course: Patient with symptoms of mastitis. No signs of abscess on exam. The patient will be started on cephalexin. Patient counseled on treatment plan as well as concerning symptoms to return for. Departure - Departure Disposition: 01 Home, Self Care Clinical Impression: Mastitis Condition: Stable Instructions: ED Breast Infec Prescriptions: cephALEXin [Keflex] 500 mg PO Q6H #40 cap Comments: You have mastitis which is an infection treated by an antibiotic. I sent this prescription to [facility] in [place]. Please continue with breast-feeding with either direct nursing or pumping as you do not want to become engorged and have blocked ducts. If it anytime you have any worsening symptoms then please consider repeat evaluation in the emergency department. Continue with acetaminophen or ibuprofen as needed for fever and bodyaches. Forms: PCP List Discharge Date/Time: 09/28/23 14:06
== END 2023-09-28 14:06 | disposition home or self-care (01) ==
LOC: ED 12:13
DX: N61.0 Mastitis without abscess (principal)
CPT/HCPCS: 99282; 99283